=== PATIENT | female | born 1970 | race African-American/Black ===

== ENCOUNTER 2017-03-10 15:46 | Emergency (ER) | payer BC ==
[~2017-03-10] VITALS: Ht 162.6 cm; Wt 81.6 kg
[2017-03-10] MEDS ORDERED: NORCO 5-325 TA1 EACH ORAL (16:00)
[2017-03-10] MEDS ORDERED: Tetanus/Diptheria/Pertussis Vaccine 0.5ml Syr IM ONE (16:45)
[2017-03-10] MEDS ORDERED: Augmentin 875mg Tab ORAL ONE (17:00)
--- NOTE | 2017-03-10 17:01 | Emergency Room Report ---
History of Present Illness General Chief Complaint: Animal Bite Source: Patient Present Illness HPI 46 YO Female presents to the ED c/o dog bite yesterday, tetanus not up to date, rabies on animal is Unknown. bruises and broken skin to the bilateral posterior forearms, and right thigh. denies bleeding at this time. she reports 10/10 in severity burning pain about the wounds. reports moderate cleaning of the wounds immediately with antiseptic wash. reports repeat cleaning this am. denies fevers , reports chills. Denies numbness tingling or loss of sensation or gross motor movements of the extremities, incontinence of bowel or bladder. Denies CP, Palpitations, LOC, AMS, dizziness, Changes in Vision, Sensation, paresthesias, or a sudden severe headache. Allergies: Coded Allergies: No Known Allergies (Unverified , 03/10/17) Patient History Past Medical History: see triage record Past Surgical History: none Pertinent Family History: none Last Menstrual Period: Hysterectomy Now: No Reviewed Nursing Documentation: PMH: Agreed, PSxH: Agreed Nursing Documentation-PMH Past Medical History: No Stated History Review of Systems All Other Systems: negative except mentioned in HPI Physical Exam Vital Signs Date Time Temp Pulse Resp B/P (MAP) Pulse Ox O2 Delivery O2 Flow Rate FiO2 03/10/17 15:54 98.1 90 19 146/95 100 Room Air Sp02 EP Interpretation: reviewed, normal General Appearance: normal inspection, well appearing, no apparent distress, alert, GCS 15, non-toxic Head: normocephalic, atraumatic Eyes: bilateral eye normal inspection, bilateral eye PERRL Neck: full range of motion, no bony tend Respiratory: lungs clear, normal breath sounds Cardiovascular #1: regular rate, rhythm Musculoskeletal: non-tender - no bony ttp, superficial soft tissue ttp about wounds. Neurologic: oriented x3, responsive, motor strength/tone normal, sensory intact , normal gait, speech normal Skin: warm/dry, other - no current bleeding- superficial puncture wounds with surrounding bruises to the bilateral posterior forearms, and right thigh. erythema with mild increased temperature to palpation. Lymphatic: no adenopathy Medical Decision Making PA Attestation Dr. Martinez is my supervising Physician whom patient management has been discussed with. Diagnostic Impression: Primary Impression: Bite by animal Additional Impression: Dog bite Qualified Codes: W54.0XXA - Bitten by dog, initial encounter ER Course 46 YO Female presents to the ED c/o dog bite yesterday, tetanus not up to date, rabies on animal is Unknown. bruises and broken skin to the bilateral posterior forearms, and right thigh. denies bleeding at this time. she reports 10/10 in severity burning pain about the wounds. reports moderate cleaning of the wounds immediately with antiseptic wash. reports repeat cleaning this am. denies fevers , reports chills. Denies numbness tingling or loss of sensation or gross motor movements of the extremities, incontinence of bowel or bladder. Denies CP, Palpitations, LOC, AMS, dizziness, Changes in Vision, Sensation, paresthesias, or a sudden severe headache. Ddx considered but are not limited to Cellulitis, rabies, fracture, neurovascular compromise of extremity. Vital signs: are WNL, pt. is afebrile H&PE are most consistent with dog bite, mild infection, no current bleeding- superficial puncture wounds with surrounding bruises to the bilateral posterior forearms, and right thigh. erythema with mild increased temperature to palpation. 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 ED INTERVENTIONS: -Tetanus vaccination is administered. -Augmentin PO - Lidocaine cream topically applied -Motrin PO DISCHARGE: At this time pt. is stable for d/c to home. Will provide printed patient care instructions, and any necessary prescriptions. Care plan and follow up instructions have been discussed with the patient prior to discharge. * Augmentin TID x 7 days. Last Vital Signs Date Time Temp Pulse Resp B/P (MAP) Pulse Ox O2 Delivery O2 Flow Rate FiO2 03/10/17 15:54 98.1 90 19 146/95 100 Room Air Disposition: HOME, SELF-CARE Condition: Stable Scripts Lidocaine (TOPICAINE 5) 113 Gm Gel..gram. 1 APPLIC TP QID, #113 GM Prov: Shobha Fu.Cameron 03/10/17 Ibuprofen* (MOTRIN*) 600 Mg Tablet 600 MG ORAL THREE TIMES A DAY, #30 TAB 0 Refills Prov: Shobha Fu.Cameron 03/10/17 Amoxicillin/Potassium Clav 875-125* (AUGMENTIN 875-125 TABLET*) 1 Each Tablet 1 TAB ORAL TWICE A DAY for 7 Days, #14 TAB Prov: Shobha Fu 03/10/17 Patient Instructions: Animal Bite Additional Instructions: Take medications as directed. Follow up with a Primary Care Provider in 3-5 days, even if your symptoms have resolved. --Please review list of primary care clinics, if you do not already have a primary care provider Return sooner to ED if new symptoms occur, or current symptoms become worse. - Please note that this Emergency Department Report was dictated using [employer] software development technology software, occasionally this can lead to erroneous entry secondary to interpretation by the dictation equipment. Shobha Fu Mar 10, 2017 17:01
[2017-03-10] MEDS ORDERED: IBUPROFEN600 MG ORAL (17:02)
[2017-03-10] MEDS ORDERED: AUGMENTIN 875-1 EAC1 ORAL (17:02)
[2017-03-10] MEDS ORDERED: TOPICAINE 5113 GM TP (17:02)
[2017-03-10 17:16] VITALS: BP 146/95
== END 2017-03-10 18:00 | disposition home or self-care (01) ==
LOC: EMR 17:00
DX: S51.852A Open bite of left forearm, initial encounter (principal); S51.851A Open bite of right forearm, initial encounter; S71.151A Open bite, right thigh, initial encounter; Z23 Encounter for immunization; Z90.710 Acquired absence of both cervix and uterus; W54.0XXA Bitten by dog, initial encounter; Y92.9 Unspecified place or not applicable
CPT/HCPCS: 90471; 90715; 99284